=== PATIENT | male | born 1970 | race Caucasian/White ===

== ENCOUNTER 2018-10-12 16:30 | Emergency (ER) | payer OTHER, BC | END 2018-10-12 18:38 | disposition home or self-care (01) | LOC: FER 16:30 ==

== ENCOUNTER 2018-10-22 12:54 | Emergency (ER) | payer BC ==
--- NOTE | 2018-10-22 12:57 | PDOC ---
Suture Removal/Wound Check HPI - History of Present Illness Chief Complaint: Suture/Staple Removal(Here) Stated Complaint: SUTURE REMOVAL Time Seen by Provider: 10/22/18 12:56 History Source: Yes: Patient Exam Limitations: Yes: No Limitations Treated at: [facility] ED Date of Last ED visit: 10/12/18 (4 4-0 sutures) - Previous ED Treatment Type of procedure performed on last visit: Yes: Laceration Repair Tetanus Immunization: Yes: Up to Date, Given at last ED visit Antibiotics Prescribed: Yes - Onset of Previous Treatment Date of Occurence: 10/12/18 Past History - Past Medical History Allergies/Adverse Reactions: Allergies Allergy/AdvReac Type Severity Reaction Status Date / Time clavulanic acid Allergy Intermediate Vomiting Verified 10/22/18 13:02 [From Augmentin] amoxicillin Allergy Unknown Verified 10/22/18 13:02 Home Medications: Ambulatory Orders NK [No Known Home Medication] 10/22/18 COPD: No - Immunization History TDAP Vaccination: No - Suicide/Smoking/Psychosocial Hx Smoking History: Never smoked Hx Alcohol Use: Yes (SOCIAL) Drug/Substance Use Hx: No *Review of Systems - Review of Systems Comments:: 10/22/18 12:58 GENERAL/CONSTITUTIONAL: No fever or chills. No weakness. HEAD, EYES, EARS, NOSE AND THROAT: No change in vision. No ear pain or discharge. No sore throat. CARDIOVASCULAR: No chest pain or shortness of breath RESPIRATORY: No cough, wheezing, or hemoptysis. GASTROINTESTINAL: No nausea, vomiting, diarrhea or constipation. GENITOURINARY: No dysuria, frequency, or change in urination. MUSCULOSKELETAL: No joint or muscle swelling or pain. No neck or back pain. SKIN: No rash NEUROLOGIC: No headache, vertigo, loss of consciousness, or change in strength/ sensation. ENDOCRINE: No increased thirst. No abnormal weight change HEMATOLOGIC/LYMPHATIC: No anemia, easy bleeding, or history of blood clots. ALLERGIC/IMMUNOLOGIC: No hives or skin allergy. *Physical Exam - Physical Exam Comments: 10/22/18 12:58 GENERAL: Awake, alert, and fully oriented, in no acute distress HEAD: No signs of trauma, normocephalic, atraumatic EYES: PERRLA, EOMI, sclera anicteric, conjunctiva clear ENT: Auricles normal inspection, hearing grossly normal, nares patent, oropharynx clear without exudates. Moist mucosa NECK: Normal ROM, supple, no lymphadenopathy, JVD, or masses LUNGS: No distress, speaks full sentences, clear to auscultation bilaterally HEART: Regular rate and rhythm, normal S1 and S2, no murmurs, rubs or gallops, peripheral pulses normal and equal bilaterally. ABDOMEN: Soft, nontender, normoactive bowel sounds. No guarding, no rebound. No masses EXTREMITIES: +Well healed laceration to 4th finger of R hand. [address] Otherwise normal inspection, Normal range of motion, no edema. No clubbing or cyanosis. NEUROLOGICAL: Cranial nerves II through XII grossly intact. Normal speech, normal gait, no focal sensorimotor deficits SKIN: Warm, Dry, normal turgor, no rashes or lesions noted. Medical Decision Making - Medical Decision Making 10/22/18 12:59 3-0 Sutures removed w/out difficulty. Patient reports he visualized 1 break off while changing dressing. Patient was unable to tolerate ABX so only took 1 dose however denies any fevers, chills. Wound otherwise well appearing. No concern for acute process or other infection. Discharging to home. *DC/Admit/Observation/Transfer Diagnosis at time of Disposition: Visit for suture removal - Discharge Dispostion Disposition: HOME Condition at time of disposition: Stable - Referrals - Patient Instructions Printed Discharge Instructions: DI for Suture Removal Additional Instructions: You were evaluated today in the ER for suture removal. We took out 3 of the 4 placed on the 14th as 1 had broken on its own. No concerning findings were found. You may continue to use motrin or tylenol as needed per package instructions for pain control. Return to ER if any fever, chills, increase in pain, or other concerning findings. - Post Discharge Activity
[2018-10-22 13:05] VITALS: BP 137/99; PULSE 65; TEMP 98; BMI 34.7
--- NOTE | 2018-10-22 13:11 | PDOC ---
Attending Attestation - Resident Resident Name: Pedrito Harrison - ED Attending Attestation I have performed the following: I have examined & evaluated the patient, The case was reviewed & discussed with the resident, I agree w/resident's findings & plan, Exceptions are as noted - HPI HPI: 10/22/18 13:09 48 year old male returns for suture removal. Pt denies fevers, chills. Stated one of the sutures fell out. Currently has 3 sutures. - Physicial Exam PE: 10/22/18 13:09 GENERAL: Awake, alert, and fully oriented, in no acute distress HEAD: No signs of trauma EYES: EOMI, sclera anicteric, conjunctiva clear ENT: Auricles normal inspection, hearing grossly normal, nares patent, NECK: Normal ROM, supple, es EXTREMITIES: Normal range of motion, no edema. No clubbing or cyanosis. No cords, erythema, or tenderness 4th right digit. granulated and without signs of infection. no erythema or drainage. healed. [address] NEUROLOGICAL: Cranial nerves II through XII grossly intact. Normal speech, normal gait SKIN: Warm, Dry, normal turgor, no rashes or lesions noted. - Medical Decision Making 10/22/18 13:11 Vital Signs Temp Pulse Resp BP Pulse Ox 98 F 65 18 137/99 98 10/22/18 12:55 10/22/18 12:55 10/22/18 12:55 10/22/18 12:55 10/22/18 12:55 3 sutures removed (the 4th one had fell out earlier). no signs of infection. Standard precautions and good hand hygiene practice. Follow up with PMD
== END 2018-10-22 13:23 | disposition home or self-care (01) ==
LOC: FER 12:54
DX: Z48.02 Encounter for removal of sutures (principal)
CPT/HCPCS: 99281-25